=== PATIENT | male | born 1990 | race Caucasian/White ===

== ENCOUNTER 2017-10-28 00:29 | Emergency (ER) | payer OTHER ==
[~2017-10-28] VITALS: Ht 170.2 cm; Wt 85.0 kg
[2017-10-28 07:03] LABS: BASOPHILS % 0.5 % (0.0-2.0); EOSINOPHILS % 2.2 % (0.0-5.0); HEMATOCRIT. 41.7 % (42.0-52.0); HEMOGLOBIN. 14.4 g/dL (14.0-18.0); LYMPHOCYTES % 26.4 % (20.0-50.0); MEAN CORPUSCULAR HEMOGLOBIN 30.2 pg (28.0-32.0); MEAN CORPUSCULAR VOLUME 87.5 fL (80.0-94.0); MEAN PLATELET VOLUME 7.8 fl (7.4-10.4); MONOCYTES % 9.6 % (2.0-8.0); NEUTROPHILS % 61.3 % (40.0-76.0); PLATELET 263 x1000/uL (130-400); RED BLOOD CELL COUNT 4.77 mill/uL (4.7-6.1); RED CELL DISTRIBUTION WIDTH 13.8 % (11.6-14.6)
[2017-10-28 07:15] LABS: CARBON DIOXIDE 28 mEq/L (21-32); CHLORIDE 107 mEq/L (98-107)
[2017-10-28 08:06] VITALS: BP 118/64
== END 2017-10-28 08:33 | disposition home or self-care (01) ==
LOC: ER 00:29
DX: J06.9 Acute upper respiratory infection, unspecified (principal); Z88.0 Allergy status to penicillin; Z88.2 Allergy status to sulfonamides
CPT/HCPCS: 36415; 71010; 80048; 85025; 99285; Z7610

== ENCOUNTER 2021-06-24 21:47 | Emergency (ER) | payer OTHER ==
[~2021-06-24] VITALS: Ht 170.2 cm; Wt 82.0 kg
[2021-06-25] MEDS ORDERED: CETIRIZINE 10MG TABLET PO SCH (00:45)
[2021-06-25] MEDS ORDERED: FAMOTIDINE 20MG TABLET PO ONE (00:45)
[2021-06-25] MEDS ORDERED: PREDNISONE 20MG TABLET PO ONE (00:45)
[2021-06-25] MEDS ORDERED: MED4 MT (00:51)
[2021-06-25] MEDS ORDERED: FAMO-135 MT (00:51)
[2021-06-25] MEDS ORDERED: CETI10TA10 MT (00:51)
[2021-06-25 01:08] VITALS: BP 135/82
== END 2021-06-25 01:10 | disposition home or self-care (01) ==
LOC: ER 21:47
DX: L23.9 Allergic contact dermatitis, unspecified cause (principal); Z88.2 Allergy status to sulfonamides; Z88.0 Allergy status to penicillin
CPT/HCPCS: 99284; J7512